=== PATIENT | female | born 1990 | race Caucasian/White ===

== ENCOUNTER → 2022-11-21 09:32 | Outpatient (CLI) | payer OTHER, MEDICAID, SELFPAY ==
[2022-11-21 10:17] LABS: Add Manual Diff / Slide Review NO; Basophils Absolute Auto 100 /uL (0-100); Basophils Percent Auto 0.5 % (0-2); Eosinophils Absolute Auto 100 /uL (0-450); Eosinophils Percent Auto 0.8 % (2-4); Hematocrit 37.1 % (36-46); Hemoglobin 13.1 g/dL (12.0-16.0); Lymphocytes Absolute Auto 2000 /uL (1100-4500); Lymphocytes Percent Auto 18.7 % (25-40); Mean Corpuscular HGB Conc 35.3 % (30-36); Mean Corpuscular Hemoglobin 31.5 PG (26-34); Mean Corpuscular Volume 89.3 fL (80-100); Monocytes Absolute Auto 700 /uL (0-900); Monocytes Percent Auto 6.9 % (3-14); Neutrophils Absolute Auto 7800 /uL (1500-7000); Neutrophils Percent Auto 73.1 % (50-75); Platelet Count 309 X10^3/uL (150-400); Red Blood Cell Count 4.16 X10^6/uL (4.0-5.2); Red Cell Distribution Width 12.4 % (11.6-14.8); White Blood Cell Count 10.7 X10^3/uL (4.5-11.0)
[2022-11-21 11:31] LABS: Hepatitis B Surface Antigen NEGATIVE s/c (NEGATIVE); Rubella Antibody IgG 78.2 IU/mL (>15)
[2022-11-21 11:42] LABS: HIV 1 & 2 Ab/Ag 4th Gen Combo NEGATIVE (NEGATIVE)
[2022-11-21 12:21] LABS: Hep C Virus Ab w/Reflex Quant NEGATIVE s/c (NEGATIVE)
[2022-11-22 09:21] LABS: Varicella IgG Antibody 1380 index (Immune >165)
[2022-11-22 14:22] LABS: RPR Screen Non Reactive (Non Reactive)
== END ==
PROVIDERS: PCP Specialist; Referring Provider Obstetrics & Gynecology; Visit Provider Obstetrics & Gynecology
DX: Z34.81 Encounter for supervision of other normal pregnancy, first trimester (principal)
CPT/HCPCS: 36415; 80055; 86787; 86803; 86850; 86900; 86901; 87086; 87389

== ENCOUNTER → 2022-12-10 15:42 | Outpatient (CLI) | payer OTHER, MEDICAID, SELFPAY ==
[2022-12-10 16:05] LABS: Specimen Label NATERA
== END ==
PROVIDERS: PCP Nurse Practitioner Family; Referring Provider Obstetrics & Gynecology; Visit Provider Obstetrics & Gynecology
DX: Z34.81 Encounter for supervision of other normal pregnancy, first trimester (principal)
CPT/HCPCS: 36415

== ENCOUNTER → 2023-02-11 08:49 | Outpatient (CLI) | payer OTHER, MEDICAID, SELFPAY ==
--- NOTE | 2023-02-11 08:50 | DI.US.S_ITS ---
PROCEDURE: US OB >= 14 WEEKS FETUS INDICATIONS: ANATOMY OUTSIDE/PRIOR DATING DATA: Last menstrual period (LMP): 09/20/2022. LMP-based estimated date of delivery (JOSSELINE): 06/27/2023. First dating scan (date and location): 12/10/2022. Estimated date of delivery (JOSSELINE) from first dating scan: 06/24/2023. The calculations are made using the clinical JOSSELINE of 06/27/2023. TECHNIQUE: Real-time scanning was performed of the fetus, with image documentation and biometric measurements. Endovaginal scanning: Not performed COMPARISON: None. FINDINGS: General: A single living intrauterine gestation is present. Presentation: Variable. Placenta: Placental position is posterior , with marginal placental previa. Amniotic fluid index: 17.7 cm, normal range is 5-24 cm. Single deepest vertical pocket is 6.1 cm. heart rate: 144 beats per minute. Maternal cervical canal: 3.1 cm long. Normal lower limit is 2.5 cm. biometrics: Biparietal diameter: 5.5 centimeters, 22 weeks 5 days Head circumference: 19.8 centimeters, 22 weeks 0 days Abdominal circumference: 17.4 centimeters, 22 weeks 2 days Femur length: 3.4 centimeters, 21 weeks 3 days Clinically estimated gestational age: 20 weeks 4 days Composite gestational age from present scan: 22 weeks 1 day Estimated weight and percentile: 463 grams, 98th percentile Anatomic survey: Neuro: Ventricles are non-dilated at less than 10 mm. Cisterna magna is normal at 3-11 mm. Cerebellum is normal in size and morphology. Nuchal skin fold: Normal at less than 6 mm between 14-21 weeks gestational age. Face: Nose and lips, facial profile are normal. Spine: No evidence for spina bifida. Heart: 4-chambered heart is present, with normal ventricular outflow tracts. Diaphragm: Diaphragm is intact. Stomach: Left-sided stomach is present. Kidneys: Mild hydronephrosis on the right, with the renal pelvis measuring 5.2 millimeter. Cord: 3-vessel cord has orthotopic insertion. Bladder: Normal in size. Extremities: All 4 extremities identified. IMPRESSION: Single living intrauterine at 20 weeks 4 days, JOSSELINE 06/27/2023. Mild right hydronephrosis, measuring 5.2 millimeter. Marginal placental previa. Estimated weight of 463 grams, 98th percentile. We strive to produce accurate, complete, and clear reports of imaging services. To assist us in improving patient care, this report was composed using standard report templates and voice recognition software. Therefore, it may contain abnormal punctuation, insertions and/or omissions. Occasional wrong-word or sound-alike substitutions may occur. Though we review the report and make efforts to correct it, we do recommend that the report be read carefully in proper context to recognize any text inaccuracies. Dictated by: Luis Manuel Gale M.D. on 02/11/2023 at 12:26 Approved by: Luis Manuel Gale M.D. on 02/11/2023 at 12:30
== END ==
PROVIDERS: PCP Nurse Practitioner Family; Referring Provider Obstetrics & Gynecology; Visit Provider Obstetrics & Gynecology
DX: O44.22 Partial placenta previa NOS or without hemorrhage, second trimester (principal); Z3A.20 20 weeks gestation of pregnancy
CPT/HCPCS: 76811

== ENCOUNTER 2023-05-15 12:40 | Outpatient (CLI) | payer OTHER, MEDICAID, SELFPAY ==
--- NOTE | 2023-05-15 13:17 | PM.OBTRLD ---
Visit Information Visit Information Date of evaluation: 05/15/23 Primary OB Provider: Gena Lewis On-call OB Provider: Loly Soni Reason for Evaluation: Yes non-stress test non-stress test reason: decreased movement Vital Signs Vital Signs: Blood pressure 117/84, pulse 100, temperature 36.4? [facility] Medical History (Updated 05/15/23 @ 13:20 by Loly Soni MD) Alcoholic liver disease Alcoholism Allergies Anxiety (~2010) Chicken pox Depression (~2010) Eczema Herpes (~2019) Nerve pain (~2020) Wears glasses Surgical History (Updated 12/22/22 @ 21:01 by Zayra Vargas) Anesthesia H/O foot surgery (~10/2020) Family History (Updated 12/22/22 @ 21:03 by Zayra Vargas) Mother Depression Anxiety Gastrointestinal disease Recurrent sinus infections GERD (gastroesophageal reflux disease) Father Hepatitis C Hypertension Hyperlipidemia Grandfather History of heart disease Grandmother Stroke COVID-19 Social History marital status: unmarried,living together number of children: 0 household members: significant other lives independently: Yes caregiver/support person: Yes housing: other (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) pets and animals: Yes (dog; aware of toxo precautions) education level: college (maricarmen's degree) occupational status: unemployed (will be starting seasonal work at a [employer] soon) 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) special olvierio needs: No travel history: over 6 months ago seatbelt use: always helmet use: Yes water heater temp set < 120 deg: Yes working smoke detector in home: Yes fire extinguisher in home: Yes carbon monox detector in home: Yes firearms in home: Yes firearms unloaded and locked: Yes do you feel safe at home: Yes Smoking Status: Never smoker second hand exposure: No alcohol intake: former substance use type: does not use during the past year weight has: remained stable well-balanced diet: daily or most days daily servings fruits/ve-4 caffeine: Yes (aware of 200mg limit) Type(s) of exercise: walking frequency: daily Evaluation Evaluation Baseline heart rate: 130 Variability: Moderate (11-25) monitor accelerations: Present Monitor Decelerations: Absent Contraction Frequency (minutes): 0 Category of Tracing: Reactive Status: Category l Diagnosis, Plan/Disposition Final Diagnosis (1) 33 weeks gestation of : Status: Acute (2) Decreased movement affecting management of in third trimester: Status: Acute Plan/Disposition Plan: Reactive nonstress test. Patient reassured that fluttering she feels is the same as movement OB Disposition: home
== END 2023-05-15 13:15 | disposition home or self-care (01) ==
LOC: OB 05-27 08:03
PROVIDERS: PCP Nurse Practitioner Family; Referring Provider Obstetrics & Gynecology; Visit Provider Obstetrics & Gynecology
DX: O36.8130 Decreased fetal movements, third trimester, not applicable or unspecified (principal); Z3A.33 33 weeks gestation of pregnancy
CPT/HCPCS: 59025; G0378; G0379

== ENCOUNTER → 2023-06-02 10:49 | Outpatient (CLI) | payer OTHER, MEDICAID, SELFPAY ==
[2023-06-03 12:00] LABS: Strep Grp B PCR NEG for Grp B Strep
== END ==
PROVIDERS: PCP Nurse Practitioner Family; Visit Provider Specialist
DX: Z34.93 Encounter for supervision of normal pregnancy, unspecified, third trimester (principal); Z3A.36 36 weeks gestation of pregnancy
CPT/HCPCS: 87653

== ENCOUNTER 2023-06-08 05:39 | Inpatient (IN) | payer OTHER, MEDICAID, SELFPAY ==
[2023-06-08 06:26] VITALS: BP 132/98
[2023-06-08] MEDS: LACTATED RINGERS 1,000 ML 999 ML IV ×4 (06:36→08:43)
[2023-06-08 06:43] LABS: Hematocrit 38.3 % (36-46); Hemoglobin 13.2 g/dL (12.0-16.0); Mean Corpuscular HGB Conc 34.5 % (30-36); Mean Corpuscular Hemoglobin 31.2 PG (26-34); Mean Corpuscular Volume 90.4 fL (80-100); Platelet Count 194 X10^3/uL (150-400); Red Blood Cell Count 4.23 X10^6/uL (4.0-5.2); Red Cell Distribution Width 13.3 % (11.6-14.8); White Blood Cell Count 7.8 X10^3/uL (4.5-11.0)
[2023-06-08 06:44] LABS: Add Manual Diff / Slide Review YES
[2023-06-08] MEDS: CITRIC ACID/SODIUM CITRATE 15 ML SOLUTION 30 ML PO (06:48)
[2023-06-08 07:08] LABS: Neutrophils Absolute Manual 5148 /uL (3000-5900); Total Cells Counted 100
[2023-06-08 07:09] LABS: RBC Morphology Normal Morphology
--- NOTE | 2023-06-08 07:24 | P.HPOB_ITS ---
OB HPI Date/Time Date of admission: 06/08/23 Date Patient Seen: 06/08/23 Time Patient Seen: 07:26 History of Present Condition Chief complaint: Primary JOSSELINE Calculator 2 Estimated Delivery Date Method Current WG Current Estimate 06/27/23 Ultrasound #1 37w 2d Other Estimates 05/29/23 LMP (Uncertain) 41w 3d 06/24/23 Ultrasound #2 37w 5d Estimated Gestational Age (weeks): 37+2 : 2 Para: 0 care: good care, initiated at week # (11), number of visits (9) and pounds weight gain (44) Dating criteria OB: LMP confirmed by 1st trimester US Ultrasounds: normal 1st trimester US and abnormal US findings (Posterior complete placenta previa) Abnormal ultrasound findings: Posterior complete placenta previa Obstetrical complications: other (Posterior complete placenta previa) Indications Operative indications ( section): placenta previa (Complete, posterior) Preadmission Labs Last OB Lab Results: 2 Blood Type A Positive 11/21/22 09:38 Antibody Screen Negative 11/21/22 09:38 Hematocrit 38.3 % (36-46) 06/08/23 06:27 Hemoglobin 13.2 g/dL (12.0-16.0) 06/08/23 06:27 Hepatitis B Surface Antigen Negative s/c (NEGATIVE) 11/21/22 09 :38 Hepatitis C Antibody Negative s/c (NEGATIVE) 11/21/22 09:38 Rubella Antibody 78.2 IU/mL (>15) 11/21/22 09:38 Varicella-Zoster IgG Antibody 1380 index (Immune >165) 11/21/22 09:38 Group B Streptococcus (PCR) Neg for grp b strep 06/02/23 10:49 Glucose Tolerance Testin hr (139) -: Chlamydia screen: negative, Gonorrhea screen: negative and Urine: negative (Lacto) -: PAP smear: Normal Genetic Screens: Cell-free DNA: Normal (Male) External Labs -: Urine: negative (Lacto) Prior (ies) Past Pregnancies Del. Date GA/Weeks Labor Lgth Wt Sex Route Outcome Anesthesia Place Delv Breastfeed Preg Comp Name 10/01/16 6 elective Delivery Date: 10/01/16 Last Updated by: Nany Trent RN D&C, no period for a few years after that, but no known complications Evaluation Evaluation Baseline heart rate: 135 Variability: Moderate (11-25) monitor accelerations: Present Monitor Decelerations: Absent PFS Medical History (Updated 05/19/23 @ 15:17 by Gena Lewis MD) Wears glasses Allergies Chicken pox Herpes (~2019) Alcoholic liver disease Eczema Nerve pain (~2020) Anxiety (~2010) Depression (~2010) Alcoholism Surgical History (Updated 12/22/22 @ 21:01 by Zayra Vargas) Anesthesia H/O foot surgery (~10/2020) Family History (Updated 12/22/22 @ 21:03 by Zayra Vargas) Mother Depression Anxiety Gastrointestinal disease Recurrent sinus infections GERD (gastroesophageal reflux disease) Father Hepatitis C Hypertension Hyperlipidemia Grandfather History of heart disease Grandmother Stroke COVID-19 Social History marital status: unmarried,living together number of children: 0 household members: significant other lives independently: Yes caregiver/support person: Yes housing: other (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 apartment 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) pets and animals: Yes (dog; aware of toxo precautions) education level: college (maricarmen's degree) occupational status: unemployed (will be starting seasonal work at a [employer] soon) 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) special oliverio needs: No travel history: over 6 months ago seatbelt use: always helmet use: Yes water heater temp set < 120 deg: Yes working smoke detector in home: Yes fire extinguisher in home: Yes carbon monox detector in home: Yes firearms in home: Yes firearms unloaded and locked: Yes do you feel safe at home: Yes Smoking Status: Never smoker second hand exposure: No alcohol intake: former substance use type: does not use during the past year weight has: remained stable well-balanced diet: daily or most days daily servings fruits/ve-4 caffeine: Yes (aware of 200mg limit) Type(s) of exercise: walking frequency: daily Meds Home Medications and Allergies Home Medications Medication Instructions Recorded Confirmed Type escitalopram oxalate 20 mg tablet 20 mg PO DAILY 11/20/22 06/08/23 History (Lexapro) prenat.vits,alexa,uos-noqo-utsaa 1 tab PO DAILY 11/20/22 06/08/23 History ferrous sulfate 142 mg (45 mg 142 mg PO DAILY 04/07/23 06/08/23 History iron) tablet,extended release (Slow Fe) Allergies Allergy/AdvReac Type Severity Reaction Status Date / Time lavender (Lavandula Allergy Intermediate Rash Verified 06/08/23 06:24 angustifolia) Penicillins Allergy Intermediate Hives Verified 06/08/23 06:24 OB Exam Narrative Exam Narrative: Generally: Patient is sitting up in bed, no acute distress Lungs: Clear to auscultation bilaterally Cardiovascular: Regular rate and rhythm Fundal height: 37 cm Estimated weight: 6-1/2 lb Extremities: Trace edema, 1+ DTRs Objective Labs 06/08/23 06:27 Labs: Laboratory Results - last 24 hr 06/08/23 06:27 WBC 7.8 RBC 4.23 Hgb 13.2 Hct 38.3 MCV 90.4 MCH 31.2 MCHC 34.5 RDW 13.3 Plt Count 194 Neut % (Auto) Not Reportable Lymph % (Auto) Not Reportable [place] % (Auto) Not Reportable Eos % (Auto) Not Reportable Baso % (Auto) Not Reportable Lymph # (Auto) Not Reportable [place] # (Auto) Not Reportable Baso # (Auto) Not Reportable Total Counted 100 Seg Neutrophils % 66.0 Lymphocytes % (Manual) 25.0 Monocytes % (Manual) 5.0 Eosinophils % (Manual) 3.0 Basophils % (Manual) 1.0 Neutrophils # (Manual) 5148 RBC Morphology Normal morphology Assessment and Plan Assessment and Plan Assessment and Plan narrative: Assessment: 32-year-old 2 para 0 at 37-,2/7 weeks gestation with complete posterior placenta previa Plan: Primary The risks, benefits, and alternatives to the procedure were explained to the patient. The risks including bleeding, infection, injury to the bowel, bladder, or ureters. She also understands that there is a possibility of receiving blood due to the previa. She understands all of these risks and agrees to proceed. A full par Q was held and consent form was signed. Type and cross x2 units Time Spent with Patient Total time spent with greater than 50% in coordination of care (as documented) at patient's floor/unit and/or counseling patient:: 15-24 minutes
--- NOTE | 2023-06-08 07:30 | PM.PREOP ---
Pre-operative Note Interval Note History & Physical reviewed/Exam performed by Physician: Yes Changes to H&P: No H&P completed within 30 days and has changed as indicated here:: 06/08/23
[2023-06-08] MEDS: CEFAZOLIN 2 GM/100 ML PREMIX 100 ML IV (07:47)
--- NOTE | 2023-06-08 08:01 | SUR.OPER ---
FHR 135.
--- NOTE | 2023-06-08 08:03 | SUR.OPER ---
Supine on Padded OR bed, head on pillow, safety belt at thigh, arms secured on padded arm boards at <90 degrees abduction. Bump under right buttock. Legs uncrossed with pillow under knees, gel pad to heels, tape over blanket to lower legs.
--- NOTE | 2023-06-08 08:16 | SUR.OPER ---
TOB live male @ 0806. Cord blood and placenta to L&D with OB RN's
--- NOTE | 2023-06-08 08:32 | RT ---
Baby came over to warmer after approx 1 minute. Baby wasn't crying but had a good pulse at 140 but saturations were a little low around 70 and was just staying around there. Baby was give CPAP of 5 and 21%. Saturations slowly climbed but could not get above 85%. Turned fio2 up to 30% and saturations started to climb over 90% at around 10 min post . Baby was suctioned and was able to get a moderate amount out of nose and mouth. At that point fio2 was back to 21% and discontinued CPAP and blow by. Baby was able to keep saturations in the low to mid 90's on own.
[2023-06-08 08:50] VITALS: BP 136/89; PULSE 79; RESP 12; TEMP 36.1; O2SAT 100
[2023-06-08 09:00] VITALS: BP 104/71; PULSE 90; RESP 18; TEMP 36.1; O2SAT 100
[2023-06-08 09:05] VITALS: BP 109/70; PULSE 90; RESP 18; O2SAT 100
--- NOTE | 2023-06-08 09:09 | P.OP_ITS ---
Operative Date/Time/Diagnoses Date of procedure: 06/08/23 Time of procedure: 09:09 Pre-op diagnosis: 37+2 weeks gestation Complete posterior placenta previa Post-op diagnosis: same Procedure & Clinicians Procedure: Primary C section Same procedure as scheduled: Yes Indications: 37+2 weeks gestation Complete posterior placenta previa Surgeon: Gena Lewis Click Yes if Unassisted: Yes Veterinarian Laboratory Animal Care: Jalyn Pena Reason for Veterinarian Laboratory Animal Care: The salon shampoo assistant was necessary to retract upon entry into the abdomen and uterus. She assisted with delivery of the infant with fundal pressure. She assisted with closure with retraction, clipping of suture, and closure of the contralateral fascia. Anesthesia Type: Spinal (With Duramorph) Operative Notes Findings: Live male infant in the [place] presentation Normal uterus, tubes, and ovaries Closure Type: primary Specimen(s): cord blood and placenta Intraoperative meds administered: Duramorph, Ketorolac and Pitocin Applied: Catheter (To continuous drainage) Estimated Blood Loss (mL): 400 Blood products transfused: none Procedure in detail: The patient was taken to the operating room where she was placed in the seated position. Spinal anesthesia with Duramorph was administered. She was then placed in the dorsal supine position with a leftward tilt. She was prepped and draped in the usual sterile fashion. A timeout was performed. After spinal analgesia was found to be adequate, a Pfannenstiel skin incision was made 2 fingerbreadths above the pubic symphysis and carried through to the underlying layer of fascia. The fascia was nicked in the midline, and the incision extended bilaterally with the Tovar scissors. The superior aspect of the fascial incision was grasped with a Jigar clamps, elevated, and the underlying rectus muscles dissected off sharply and bluntly. Attention was then turned to the inferior aspect of this incision which in a similar fashion was grasped with a [place] clamps, elevated, and the underlying rectus muscles dissected off sharply and bluntly. The rectus muscles were in the midline. The peritoneum was identified, grasped between 2 hemostats, and entered sharply with the Metzenbaum scissors. This incision was extended superiorly and inferiorly with good visualization of the bladder. The bladder blade was inserted. The vesico uterine peritoneum was identified, grasped with the pickup, and entered sharply with the Metzenbaum scissors. This incision was extended bilaterally, and the bladder flap was created digitally. The bladder blade was reinserted. The lower uterine segment was incised in a transverse fashion with the scalpel. Upon entering the amniotic sac there was clear amniotic fluid. The infant's head was delivered without difficulty. The nose and mouth were suctioned with bulb suction. The remainder of the body delivered without difficulty. The cord was double clamped and cut after 1 minute. The was handed off to waiting RN and RT. The placenta was delivered by expression. The uterus was cleared of all clots and debris. The uterine incision was repaired with #1 chromic in a running interlocking fashion, and a second layer the same suture was used for an imbricating layer. Hemostasis was achieved. The tubes and ovaries were examined and were found to be normal. The gutters were cleared of all clots and debris. The bladder flap was reapproximated using 2-0 Vicryl in a running fashion. The parietal peritoneum was closed using 2-0 Vicryl in a running fashion. The fascia was reapproximated using 0 Vicryl in a running fashion. The subcutaneous layer was copiously irrigated with warm normal saline. 5 simple interrupted sutures of 3-0 Vicryl were placed to reapproximate the subcutaneous layer. The skin was closed with 4-0 Monocryl in a subcuticular fashion. Steri- Strips were placed. An Aquacel dressing was placed. The uterus was expressed of a small amount of old blood. Sponge, lap, and instrument counts were correct x-2. The patient tolerated the procedure well, and was taken to PACU in stable condition. Complications: none [place] Baby 1: Infant Gender: Male Presentation: vertex Position: Right Occiput Anterior Placental Delivery Description: Expressed Cord Vessel Description: 3 Vessels score (1 min): 7 score (5 min): 8 weight: 7 lb 6.6 oz Post-operative Condition: stable Disposition: PACU Aftercare: routine postop
[2023-06-08] MEDS: KETOROLAC 30 MG/ML VIAL IV ×2 (14:27→21:28)
[2023-06-08] MEDS: LANOLIN OINT 7 GM 1 APPLIC TOP (22:49)
[2023-06-08] MEDS: ESCITALOPRAM 10 MG TABLET 20 MG PO (22:50)
[2023-06-09] MEDS: KETOROLAC 30 MG/ML VIAL IV (04:25)
[2023-06-09 06:25] LABS: Add Manual Diff / Slide Review NO; Basophils Absolute Auto 100 /uL (0-100); Basophils Percent Auto 1.2 % (0-2); Eosinophils Absolute Auto 0 /uL (0-450); Eosinophils Percent Auto 0.3 % (2-4); Hematocrit 31.3 % (36-46); Hemoglobin 10.8 g/dL (12.0-16.0); Lymphocytes Absolute Auto 2900 /uL (1100-4500); Lymphocytes Percent Auto 24.6 % (25-40); Mean Corpuscular HGB Conc 34.4 % (30-36); Mean Corpuscular Hemoglobin 31.2 PG (26-34); Mean Corpuscular Volume 90.8 fL (80-100); Monocytes Absolute Auto 800 /uL (0-900); Monocytes Percent Auto 7.1 % (3-14); Neutrophils Absolute Auto 7700 /uL (1500-7000); Neutrophils Percent Auto 66.8 % (50-75); Platelet Count 174 X10^3/uL (150-400); Red Blood Cell Count 3.45 X10^6/uL (4.0-5.2); Red Cell Distribution Width 13.3 % (11.6-14.8); White Blood Cell Count 11.6 X10^3/uL (4.5-11.0)
[2023-06-09] MEDS: IBUPROFEN 600 MG TABLET PO ×3 (11:23→23:28)
[2023-06-09] MEDS: ACETAMINOPHEN 325 MG TABLET 650 MG PO ×3 (11:24→23:28)
[2023-06-09] MEDS: PRENATAL VIT,CALC/IRON/FOLIC 1 TABLET 1 TAB PO (17:32)
[2023-06-09] MEDS: DOCUSATE 100 MG CAPSULE PO (17:32)
--- NOTE | 2023-06-09 19:20 | PM.OBPN.1 ---
Subjective - OB Subjective Patient comments: no complaints and pain well controlled baby status: doing well and nursing well feeding status: exclusively breast feeding Date Patient Seen: 06/09/23 Time Patient Seen: 13:15 Interval history: Postop day # 1 status post primary section for a complete placenta previa. Exam Vital Signs (past 8 hours): Oxygen Delivery Method Room Air Narrative Exam Narrative: Generally: Patient is sitting up in bed, holding infant, no acute distress Lungs: Clear to auscultation bilaterally Cardiovascular: Regular rate and rhythm Fundus: Firm at U -1 Incision: Clean dry and intact with Aquacel dressing Extremities: Trace edema, negative Homans Objective Labs 06/09/23 06:05 Labs: Laboratory Results - last 24 hr 06/09/23 06:05 WBC 11.6 H RBC 3.45 L Hgb 10.8 L Hct 31.3 L MCV 90.8 MCH 31.2 MCHC 34.4 RDW 13.3 Plt Count 174 Neut % (Auto) 66.8 Lymph % (Auto) 24.6 L [place] % (Auto) 7.1 Eos % (Auto) 0.3 L Baso % (Auto) 1.2 Neut # (Auto) 7700 H Lymph # (Auto) 2900 [place] # (Auto) 800 Eos # (Auto) 0 Baso # (Auto) 100 Assessment & Plan Plan day: 1 plan OB: routine postop care Comments: Keep an eye on blood pressure Time Spent With Patient Time: Total time spent is greater than 50% in coordination of care (as documented) at patient's floor/unit and/or counseling patient: Time with patient: 15-24 minutes
[2023-06-09] MEDS: ESCITALOPRAM 10 MG TABLET 20 MG PO (23:29)
[2023-06-09 23:39] VITALS: BP 132/87; PULSE 98
[2023-06-09] MEDS: LABETALOL 100 MG TABLET PO (23:39)
[2023-06-10] MEDS: IBUPROFEN 600 MG TABLET PO (05:29)
[2023-06-10] MEDS: ACETAMINOPHEN 325 MG TABLET 650 MG PO (05:29)
[2023-06-10 09:08] VITALS: BP 138/93; PULSE 79
[2023-06-10] MEDS: PRENATAL VIT,CALC/IRON/FOLIC 1 TABLET 1 TAB PO (09:08)
[2023-06-10] MEDS: LABETALOL 100 MG TABLET PO (09:08)
[2023-06-10] MEDS: DOCUSATE 100 MG CAPSULE PO (09:08)
[2023-06-10 10:18] VITALS: BP 138/93; PULSE 79; RESP 18; TEMP 36.8
--- NOTE | 2023-06-28 18:12 | P.DS_ITS ---
Discharge Providers Provider Date of admission: 06/08/23 05:39 Discharge Date: 06/10/23 Primary care physician: Angélica Pitts, MSN, PRODUCT MANAGER [employer]ICAL [employer]ICE, [employer] Consults: 06/08/23 09:19 Consult to Assembler Piano Routine Comment: Discharge provider: Gena Lewis MD Summary Hospital Course Date Patient Seen: 06/10/23 Time Patient Seen: 09:45 Diagnoses: 37+2 wks gestation Posterior placenta previa Primary low transverse C section Hospital Course: Patient is a 32-year-old 2 para 1 who presented on June 08, 2023 for a scheduled primary low-transverse section at 37-,2/7 weeks gestation due to a complete posterior placenta previa. She underwent this procedure without complication. Her postoperative course was unremarkable. She was discharged home on June 10, 2023. No nausea or vomiting. Pain well controlled. going well. Voiding without the catheter. Tolerating a diet. Peripartum Data Infant Delivery Method: Section Procedures: Spinal anesthesia Primary low transverse C section complications: none 1: Gender: Male Disposition of : home Status at Discharge Cognitive/behavioral status at discharge: oriented Functional status at discharge: independent ambulation Overall status at discharge: patient is progressing back to baseline Time Spent with Patient Time attestation: Total time spent providing and/or coordinating discharge services: Time spent: Less than 30 minutes Objective Labs 06/09/23 06:05 Exam Vital Signs (past 8 hours): Oxygen Delivery Method Room Air Narrative Exam Narrative: Generally: Patient is sitting up in bed, no acute distress Lungs: Clear to auscultation bilaterally Cardiovascular: Regular rate and rhythm Fundus: Firm at U-1 Incision: Clean dry and intact with Aquacel dressing Extremities: Trace edema, negative Homans Discharge Plan Discharge Plan Patient Disposition: Home Provider Discharge Comment: Call with fever, chills, redness or drainage around the incision, or bleeding vaginally more than a pad in an hour Ibuprofen 600 mg every 6 hours as needed Tylenol 650 mg every 6 hours as needed Discharge orders & Medications Prescriptions: New labetalol 100 mg tablet 100 mg PO BID Qty: 60 0RF Continued prenat.vits,alexa,teb-looh-oykgh Tablet 1 tab PO DAILY escitalopram oxalate [Lexapro] 20 mg tablet 20 mg PO DAILY Slow Fe 142 mg (45 mg iron) tablet extended release 142 mg PO DAILY Follow up/Referrals: Gena Lewis MD [Physician] - 07/21/23 10:45 am (Please follow-up with Dr. Lewis this Thursday for dressing removal, and at 6 weeks as scheduled) Diet/Activity/Treatments Diet: Regular Activity: No heavy lifting Nothing in the vagina for 6 weeks Skin/Wound/Dressing Care Report to your healthcare provider any signs of infection, such as:: chills, fever, increased pain, unusual drainage and unusual redness Dressing: Do not remove Visit Report/Discharge Packet Instructions: DI for Stand Alone Forms: Discharge: Care, Patient Portal/API, Stroke Signs & Symptoms Discharge Data Primary Care Provider: Angélica Pitts
== END 2023-06-10 11:25 | disposition home or self-care (01) | DRG 540 ==
PROVIDERS: Specialist; Admitting Provider Obstetrics & Gynecology; PCP Nurse Practitioner Family; Referring Provider Obstetrics & Gynecology; Visit Provider Obstetrics & Gynecology
PROC: 10D00Z1 Extraction of Products of Conception, Low, Open Approach (ICD-10-PCS; CPT 59514; principal; 2023-06-08 07:45)
DX: O44.03 Complete placenta previa NOS or without hemorrhage, third trimester (principal); Z3A.37 37 weeks gestation of pregnancy; Z37.0 Single live birth
CPT/HCPCS: 36415; 59050; 59514; 85007; 85025; 86850; 86900; 86901; J0690; J1100; J1885; J2274; J2405